=== PATIENT | female | born 1950 | race Caucasian/White ===

== ENCOUNTER → 2019-07-15 | Outpatient (REF) | payer OTHER ==
[2019-07-15 13:12] LABS: FREE T4 1.47 NG/DL (0.76-1.46); THYROID STIMULATING HORMONE < 0.005 uIU/ML (0.358-3.740); TOTAL T3 185.6 NG/DL (60.0-181.0)
== END ==
LOC: M LABDRAW1 12:05
PROVIDERS: ATTEND Nurse Practitioner Family
DX: E05.20 Thyrotoxicosis with toxic multinodular goiter without thyrotoxic crisis or storm (principal)

== ENCOUNTER → 2022-01-01 | Outpatient (CLI) | payer MEDICARE | LOC: M PLARAD 09:13 | PROVIDERS: ATTEND Nurse Practitioner Family | DX: D44.10 Neoplasm of uncertain behavior of unspecified adrenal gland (principal); R91.1 Solitary pulmonary nodule; R59.9 Enlarged lymph nodes, unspecified | CPT/HCPCS: 78815; A9552 ==

== ENCOUNTER → 2022-01-19 | Outpatient (CLI) | payer MEDICARE ==
[2022-01-19 16:25] LABS: PLATELET COUNT, AUTOMATED 264 10^3/uL (150-450)
[2022-01-19 16:39] LABS: INR 0.9; PROTHROMBIN TIME 12.5 SECONDS (12.7-14.5)
[2022-01-19 16:40] LABS: PARTIAL THROMBOPLASTIN TIME 27.9 SECONDS (25.9-37.0)
== END ==
LOC: M RAD 15:20
PROVIDERS: ATTEND Internal Medicine Pulmonary Disease
DX: Z01.812 Encounter for preprocedural laboratory examination (principal); R91.8 Other nonspecific abnormal finding of lung field

== ENCOUNTER 2022-01-31 06:02 | Day surgery (SDC) | payer MEDICARE ==
[~2022-01-31] VITALS: Ht 157.5 cm; Wt 71.2 kg
[~2022-01-31 06:02] MED LIST: ALBU8.5H; FURO40TA2; METH25TAB
[2022-01-31] MEDS ORDERED: ALBUTEROL SULFATE 2.5 MG/0.5 ML INH NEB SOLN INH ONE (07:00)
[2022-01-31] MEDS ORDERED: LIDOCAINE 4% INJ 5ML AMP INH ONE (07:00)
[2022-01-31] MEDS: LR 1,000 ML IV SCH ×2 (07:03→07:09)
[2022-01-31] MEDS ORDERED: CETACAINE SPRAY 5GM As Ordered ONE (07:12)
[2022-01-31] MEDS ORDERED: THROMBIN SOLN 5,000 UNITS VIAL As Ordered ONE (07:12)
[2022-01-31] MEDS ORDERED: LIDOCAINE 1% SDV 30ML VIAL As Ordered ONE (07:12)
[2022-01-31] MEDS ORDERED: EPINEPHrine 1MG/10ML SYRINGE 1.5IN As Ordered ONE (07:13)
[2022-01-31] MEDS ORDERED: ROCURONIUM BROMIDE 50 MG/5 ML VIAL As Ordered ONE (07:48)
[2022-01-31] MEDS ORDERED: dexameTHASONE 4 MG/ML 1ML VIAL (J1100 PER 1MG) As Ordered ONE (07:48)
[2022-01-31] MEDS ORDERED: propofoL 200 MG/20 ML VIAL As Ordered ONE (07:48)
[2022-01-31] MEDS ORDERED: MIDAZOLAM INJ 2MG/2ML VIAL (J2250 PER 1MG) As Ordered ONE (07:48)
[2022-01-31] MEDS ORDERED: SUGAMMADEX SODIUM 500 MG/5 ML VIAL (BRIDION) As Ordered ONE (07:48)
[2022-01-31] MEDS ORDERED: ONDANSETRON 4MG/2ML VIAL As Ordered ONE (07:48)
[2022-01-31] MEDS ORDERED: LIDOCAINE 2% 100MG/5ML SDV (FOR ANES.) As Ordered ONE (07:48)
[2022-01-31] MEDS ORDERED: fentaNYL 100 MCG/2 ML INJECTION As Ordered ONE ×2 (07:48→08:26)
[2022-01-31] MEDS ORDERED: LABETALOL 100MG/20ML VIAL As Ordered ONE (08:05)
[2022-01-31] MEDS ORDERED: ACETAMINOPHEN 1000MG 100ML IV BTL (OFIRMEV) (J0131 PER 10MG) As Ordered ONE (08:27)
[2022-01-31] MEDS ORDERED: LR 1,000 ML IV SCH (09:00)
[2022-01-31] MEDS ORDERED: HYDROMORPHONE HCL 0.5 MG/ 0.5 ML SYRINGE (J1170 PER 1) IV PRN (09:00)
[2022-01-31] MEDS ORDERED: ONDANSETRON 4MG/2ML VIAL IV PRN (09:00)
[2022-01-31] MEDS ORDERED: oxyCODONE 5MG TAB PO PRN (09:00)
[2022-01-31] MEDS ORDERED: fentaNYL 100 MCG/2 ML INJECTION IV PRN (09:00)
[2022-01-31 10:06] VITALS: BP 157/67
== END 2022-01-31 10:17 | disposition home or self-care (01) ==
LOC: M SDC 06:02
PROVIDERS: ATTEND Internal Medicine Pulmonary Disease
DX: R91.1 Solitary pulmonary nodule (principal); J44.9 Chronic obstructive pulmonary disease, unspecified; F17.218 Nicotine dependence, cigarettes, with other nicotine-induced disorders; E05.90 Thyrotoxicosis, unspecified without thyrotoxic crisis or storm; R60.0 Localized edema; Z79.899 Other long term (current) drug therapy
CPT/HCPCS: 31623; 31624; 31627; 31629; 31654; 71045; 76000; 87070; 87077; 87102; 87116; 87184; 87205; 87206; 88104; 88108; 88173; 88305; 88313; 93005; J0131; J0171; J1100; J2250; J2405; J3010; S2900

== ENCOUNTER 2023-04-23 07:53 | Day surgery (SDC) | payer MEDICARE ==
[~2023-04-23] VITALS: Ht 157.5 cm; Wt 73.0 kg
[~2023-04-23 07:53] MED LIST changes: +CEFUROXIME 1MG/0.1ML INTRACAMERAL INJ As Ordered ONE; +CYCLOPENTOLATE 1% OPHTH SOLN 2ML BTL OS SCH; -FURO40TA2; +FURO40TA2 PO; +LIDOCAINE 1% SDV 5ML VIAL As Ordered ONE; +OFLOXACIN 0.3 % (OCUFLOX) OPTH SOL 5ML OS SCH; +PHENYLEPHRINE 2.5% OPHTH SOL 2ML OS SCH; +PROPARACAINE 0.5% OPHTH SOL 15ML OS ONE; +SYNT75TA PO; +TROPICAMIDE 1% OPHTH SOLN 15ML OS SCH; +[UNRECOGNIZED DRUG - CODE] IV
[2023-04-23] MEDS ORDERED: BSS IRR 500ML/OMIDRIA 4ML IRR BAG (OR ONLY) As Ordered ONE (09:11)
[2023-04-23] MEDS ORDERED: MIDAZOLAM INJ 2MG/2ML VIAL As Ordered ONE ×2 (10:34→10:57)
[2023-04-23 10:56] VITALS: BP 157/66; TEMP 97.1; O2SAT 96
== END 2023-04-23 11:13 | disposition home or self-care (01) ==
LOC: M SDC 07:53
PROVIDERS: ATTEND Ophthalmology
DX: H25.12 Age-related nuclear cataract, left eye (principal); E78.5 Hyperlipidemia, unspecified; E03.9 Hypothyroidism, unspecified; J44.9 Chronic obstructive pulmonary disease, unspecified; F17.210 Nicotine dependence, cigarettes, uncomplicated; Z92.21 Personal history of antineoplastic chemotherapy; Z85.118 Personal history of other malignant neoplasm of bronchus and lung; Z79.899 Other long term (current) drug therapy
CPT/HCPCS: 65820; 66984; C1889; J0697; J1097; J2250; V2632

== ENCOUNTER 2023-05-07 09:49 | Day surgery (SDC) | payer MEDICARE ==
[~2023-05-07] VITALS: Ht 157.5 cm; Wt 73.0 kg
[~2023-05-07 09:49] MED LIST changes: +CO-E100C3 PO; +CYCLOPENTOLATE 1% OPHTH SOLN 2ML BTL OD SCH; -CYCLOPENTOLATE 1% OPHTH SOLN 2ML BTL OS SCH; +OFLOXACIN 0.3 % (OCUFLOX) OPTH SOL 5ML OD SCH; -OFLOXACIN 0.3 % (OCUFLOX) OPTH SOL 5ML OS SCH; +PHENYLEPHRINE 2.5% OPHTH SOL 2ML OD SCH; -PHENYLEPHRINE 2.5% OPHTH SOL 2ML OS SCH; +PROPARACAINE 0.5% OPHTH SOL 15ML OD ONE; -PROPARACAINE 0.5% OPHTH SOL 15ML OS ONE; +ROSU5TAB5 PO; +TROPICAMIDE 1% OPHTH SOLN 15ML OD SCH; -TROPICAMIDE 1% OPHTH SOLN 15ML OS SCH
[2023-05-07] MEDS ORDERED: MIDAZOLAM INJ 2MG/2ML VIAL As Ordered ONE (11:27)
[2023-05-07] MEDS ORDERED: fentaNYL 100 MCG/2 ML INJECTION As Ordered ONE (11:27)
[2023-05-07] MEDS ORDERED: BSS IRR 500ML/OMIDRIA 4ML IRR BAG (OR ONLY) As Ordered ONE (11:36)
[2023-05-07] MEDS ORDERED: TRYPAN BLUE 0.06 % 2.25 ML OPHTH SYR (VISIONBLUE) As Ordered ONE (11:36)
[2023-05-07] MEDS ORDERED: ALBUTEROL SULFATE 2.5MG/0.5ML INH NEB SOLN NEB ONE (11:40)
[2023-05-07] MEDS ORDERED: TOBRADEX OPHTH OINT 3.5 GM As Ordered ONE (11:59)
[2023-05-07 12:30] VITALS: BP 174/79; TEMP 97; O2SAT 97
== END 2023-05-07 12:33 | disposition home or self-care (01) ==
LOC: M SDC 09:49
PROVIDERS: ATTEND Ophthalmology
DX: H25.11 Age-related nuclear cataract, right eye (principal); H40.1110 Primary open-angle glaucoma, right eye, stage unspecified; E78.5 Hyperlipidemia, unspecified; E03.9 Hypothyroidism, unspecified; F17.218 Nicotine dependence, cigarettes, with other nicotine-induced disorders; Z92.3 Personal history of irradiation; Z92.21 Personal history of antineoplastic chemotherapy; J44.9 Chronic obstructive pulmonary disease, unspecified; Z79.899 Other long term (current) drug therapy
CPT/HCPCS: 65820; 66984; C1889; J0697; J1097; J2250; J3010; V2632